=== PATIENT | male | born 1940 | race Caucasian/White ===

== ENCOUNTER 2021-09-30 11:00 | Outpatient (RCR) | payer MEDICARE, BC, SELFPAY | END 2021-10-15 15:14 | disposition home or self-care (01) | LOC: PT.CARL 11:00 | PROVIDERS: PCP Family Medicine; Visit Provider Orthopaedic Surgery | DX: M17.11 Unilateral primary osteoarthritis, right knee (principal) | CPT/HCPCS: 97010; 97014; 97110; 97116; 97140; 97163; 97530; G0283 ==

== ENCOUNTER 2024-01-15 13:06 | Outpatient (CLI) | payer MEDICARE, BC, SELFPAY ==
--- NOTE | 2024-01-15 13:06 | MR_ITS ---
FINAL REPORT CLINICAL HISTORY: Syncope FINDINGS: Multiplanar MR imaging of the brain was performed without contrast. There is mild age-appropriate atrophy. There are scattered foci of increased T2 signal in the cerebral white matter that have a nonspecific appearance but likely represent mild chronic ischemic/gliotic changes. There is no evidence of intracranial hemorrhage or mass. No abnormal ventricular dilatation is identified. No abnormal extra-axial fluid collection is seen. No abnormality is seen on the diffusion weighted images. The posterior fossa and brainstem are unremarkable. Normal major vessel vascular flow voids are seen. IMPRESSION: Age-appropriate atrophy and mild chronic ischemic/gliotic changes. No acute intracranial abnormality. Reviewed, Interpreted and Dictated by Paulie Mehta III, MD Transcribed by Sherie Guaman Authenticated and [facility]
== END 2024-01-15 23:59 | disposition home or self-care (01) ==
LOC: RAD 13:06
PROVIDERS: PCP Family Medicine; Visit Provider Specialist
DX: R55 Syncope and collapse (principal); I10 Essential (primary) hypertension; Z87.891 Personal history of nicotine dependence
CPT/HCPCS: 70551

== ENCOUNTER 2024-02-23 09:51 | Outpatient (CLI) | payer MEDICARE, BC, SELFPAY ==
[2024-02-23 09:57] LABS: Microscopic, Urine URINE MICROSCOPIC (MICROSCOPIC)
[2024-02-23 10:39] LABS: Basophils # 0.1 K/mm3 (0-0.2); Basophils % 0.6 % (0.1-2.0); Eosinophils # 0.2 K/mm3 (0.0-0.4); Eosinophils % 2.8 % (0.1-12.0); Hematocrit 43.9 % (42.0-52.0); Hemoglobin 13.8 g/dL (14.1-18.0); Lymphocytes # 2.3 K/mm3 (0.7-4.5); Lymphocytes % 26.8 % (10-50); Mean Corpuscular HGB Conc 31.4 g/dL (31.8-35.4); Mean Platelet Volume 9.1 fl (7.4-10.4); Monocytes # 0.6 K/mm3 (0.1-1.0); Monocytes % 7.1 % (1.7-9.3); Neutrophils # 5.3 K/mm3 (1.8-7.8); Neutrophils % 62.6 % (37.0-80.0); Platelet Count 216 K/mm3 (142-424); Red Blood Count 4.18 M/mm3 (4.60-6.20); Red Cell Distribution Width 13.3 % (11.5-17.5); White Blood Count 8.4 K/mm3 (4.8-10.8)
[2024-02-23 10:57] LABS: Anion Gap 8.9 mEq/L (5-15); Blood Urea Nitrogen 39 mg/dl (9-20); Calcium 9.4 mg/dl (8.4-10.2); Carbon Dioxide 30 mmol/L (22.0-30.0); Chloride 105 mmol/L (98-107); Estimated Glomerular Filt Rate 49 ml/min (>60); GFR (African American) 59 ML/MIN (>60); Glucose 96 mg/dl (74-100); Potassium 3.9 mmoL/L (3.5-5.1); Sodium 140 mmol/L (136-145)
[2024-02-23 11:44] LABS: Appearance,Urine CLEAR (Clear); Bilirubin,Urine Negative (Negative); Blood, Urine Negative (Negative); Color,Urine YELLOW (Yellow); Glucose,Urine (UA) Negative (Negative); Ketones,Urine Negative (Negative); Leukocyte Esterase,Urine Negative (Negative); Nitrate,Urine Negative (Negative); Protein,Urine TRACE (Negative); Urobilinogen,Urine 0.2 EU/dl (0.2)
[2024-02-23 12:02] LABS: Bacteria,Urine Trace /lpf; RBC,Urine Occasional #/hpf (0-3); Squamous Epithelial Cell,Urine Occasional #/hpf (0-5); WBC,Urine Occasional #/hpf (0-3)
== END 2024-02-23 23:59 | disposition home or self-care (01) ==
LOC: LAB 09:52
PROVIDERS: PCP Family Medicine; Visit Provider Surgery
DX: K40.90 Unilateral inguinal hernia, without obstruction or gangrene, not specified as recurrent (principal)
CPT/HCPCS: 36415; 80048; 81001; 85025

== ENCOUNTER 2024-02-29 06:03 | Day surgery (SDC) | payer MEDICARE, BC, SELFPAY ==
[2024-02-26 08:42] VITALS: BMI 24.3
[2024-02-29] VITALS (11 sets, daily range): BP systolic 135–157; BP diastolic 56–82; PULSE 63–71; RESP 16–18; TEMP 36.1–36.7; O2SAT 96–98
[2024-02-29] MEDS: LACTATED RINGERS 1000ML 1,000 ML 25 ML IV (06:37)
[2024-02-29] MEDS: CEFAZOLIN SODIUM 1GM ADV 1 GM IV (07:15)
--- NOTE | 2024-02-29 07:35 | P.PNANES_ITS ---
[facility] Disclaimer: The information contained in this section may have been updated after the patient was seen, as this information can be updated by other users. Medical History LISA on CPAP Kidney stones Hypertension Thyroid disease Arthritis Surgical History History of hernia repair Hx of knee surgery Hx of cholecystectomy Family History Other Brain bleed Coronary artery disease Kidney disease Social History (Updated 02/29/24 @ 06:27 by Mayra Poe RN) Smoking Status: Former smoker tobacco type: smokeless tobacco alcohol intake: never substance use type: denies use current occupational status: retired Travel in the last 8 weeks: None marital status: number of children: 2 education level: high school [employer] [facility] Anesthesia Checklist Patient Identification Patient Identification: Arm Band Structural Data Admitted From: Home Planned Operative Procedure/s: Open Right Inguinal Hernia Repair Consent for Planned Operative Procedure(s) Verified: Yes Verified Documents: Surgical Consent and History and Physical NPO Status Verified Time NPO: 00:00 Additional verifications Anesthesia Reactions: No Hx Blood Transfusions: No Blood Transfusion Reaction: No Airway Assessment Mallampati Score:: Class II C-Spine Mobility Assessed: Yes TMJ Mobility Assessed: Yes Dentition: Good Dentition Neurological Assessment Level of Consciousness: Awake, Alert and Appropriate Anesthesia Plan Anesthesia Risk discussed: Yes Anesthesia Plan: Verified ASA Class: III Anesthesia Type: General
[2024-02-29] MEDS: LIDOCAINE 1% 20ML MDV 20 ML (07:39)
[2024-02-29] MEDS: ROPIVACAINE 0.5% 30ML VIAL 150 MG (07:39)
--- NOTE | 2024-02-29 08:58 | P.OP_ITS ---
Date of procedure: 02/29/24 Pre-op Diagnosis:: Right inguinal hernia Post-op Diagnosis:: Same Procedure performed:: Open repair of right inguinal hernia with placement of large size Bard prefix mesh with plug Surgeon:: Paulie Gillespie MD AUDIOVISUAL EQUIPMENT OPERATOR:: Ash Hatch Anesthesia: GETA Estimated blood loss (mL): 10 Operative findings:: He had a moderate indirect hernia as well as a moderate direct hernia as a [place] hernia Operative note:: Consent was obtained patient taken the operating room. He was given preoperative intravenous antibiotics. In the operating room he was placed in a supine position. General anesthesia was induced via endotracheal tube. Lower abdomen and perineum were prepped and draped in the standard surgical fashion. Oblique incision was made superior to landmarks identifying the inguinal lig ament. Dissection was carried down through subcutaneous tissues. Initially anatomy was somewhat difficult to determine as there was some edema and somewhat slightly altered anatomy. External oblique muscle was ultimately opened along the length of its fibers. Dissection was carried out of the cord structures. There was some mild edema. Cord structures were bluntly dissected free from the inguinal floor and encircled with a Luke drain. Inspection was carried out the cord and initially the ilioinguinal nerve was not able to be identified. Ultimately what appeared to be the ilioinguinal nerve was identified in the medial cord location and preserved. Dissection was carried out and there was a moderate direct hernia with reducible herniated preperitoneal fatty tissues. Dissection was carried out of the cord. There was a hernia sac which was dissected free from the cord. It was not opened but was reduced. Attention was turned to repair. Large size Bard prefix mesh plug was inserted into the internal ring defect medial to the cord. It was secured with several interrupted 2-0 PDS to the transversalis muscle fascia and to the shelving edge of the inguinal ligament. Given his anatomy it was able to be utilized to repair the direct hernia as well with a petal of the plug sutured to Ignacio's ligament with 2-0 PDS. The onlay mesh was then secured in position suturing it to Ignacio's ligament and along the shelving edge of the inguinal ligament inferior laterally with running 2-0 PDS. It is secured superior medially to the transversalis muscle fascia with interrupted 2-0 PDS horizontal mattress sutures. The 2 tails of the mesh were used to encircle the cord structures and they were sutured to 1 another with several interrupted 2-0 PDS sutures. Repair appeared adequate. Local anesthetic was infiltrated. Wound was irrigated. Cord structures and nerve or return to the normal anatomic position. The external oblique muscle was closed over the cord structures with a running 2-0 Vicryl. Raul's fascia was closed with a running 2-0 Vicryl. Skin was closed with 4-0 Monocryl in a running subcuticular fashion. Dermabond and dressings were applied. . Condition: stable Disposition: PACU Complications:: None immediately apparent
--- NOTE | 2024-02-29 09:04 | P.PNANES_ITS ---
[facility] Anesthesia Record Part I Anesthesia Record I Intake, IV Amount: 1,200 Hydration: Adequate Estimated blood loss (mL): 10 Urine output (mL): 50 Blood Products used (#): none Blood Pressure: 156/75 SaO2: 98 Pulse Rate: 71 Airway Patency: Patent Respiratory Rate: 16 Temperature: 98 F Patient is:: Drowsy and Stable Stable to PACU at:: 09:00
[2024-02-29 09:20] LABS: Microscopic,Cath URINE MICROSCOPIC (MICROSCOPIC)
[2024-02-29 09:27] LABS: Appearance,Urine/Cath SL CLOUDY (Clear); Bilirubin,Cath Negative (Negative); Blood, Urine/Cath 1+ (Negative); Color,Urine/Cath YELLOW (Yellow); Glucose,Urine/Cath (UA) Negative (Negative); Ketones,Urine/Cath Negative (Negative); Leukocyte Esterase,Cath Negative (Negative); Nitrate,Cath Negative (Negative); Protein,Urine/Cath TRACE (Negative); Specific Gravity, Urine/Cath 1.025 (1.005-1.030); Urobilinogen,Cath 0.2 EU/dl (0.2)
[2024-02-29 09:37] LABS: Bacteria,Urine/Cath TRACE /lpf
--- NOTE | 2024-02-29 13:08 | P.PNANES_ITS ---
[facility] Anesthesia Record Part II Anesthesia Record Part II Discharge Time: 09:30 Destination: Surgical Day Care (OP Surgery) PACU nurse assessment reviewed?: Yes Patient Condition:: Good Anesthesia Complications:: None Swallowing reflex intact?: Yes Airway Patency: Patent Cyanosis?: No Blood Pressure: 145/56 SaO2: 98 Respiratory Rate: 16 Pulse Rate: 65 Temperature: 97 F Mental Status: Alert & Oriented Pain level:: 0 Nausea and/or vomitting:: None Intake, IV Amount: 0 Hydration: Adequate
== END 2024-02-29 10:08 | disposition home or self-care (01) ==
PROVIDERS: PCP Family Medicine; Visit Provider Surgery
PROC: (CPT 49505; principal; 2024-02-29 07:30)
DX: K40.90 Unilateral inguinal hernia, without obstruction or gangrene, not specified as recurrent (principal)
CPT/HCPCS: 49505; 81001; 96374; J3490; J0690; J1100; J2405; J3010; J7120